=== PATIENT | female | born 1945 | race Caucasian/White ===

== ENCOUNTER 2016-12-19 22:27 | Observation (INO) | payer MEDICARE ==
[~2016-12-19] VITALS: Ht 160 cm; Wt 92.6 kg
[~2016-12-19 22:27] MED LIST: ASPI81TA81 PO; ATEN100T PO; CYCL1TAB29 PO; DEXI60CA PO; MONT10TA4 PO; RANI300T PO; ROSU10 PO; TRAM50TA PO
[2016-12-19 22:35] VITALS: BP 144/86; PULSE 87; RESP 16; TEMP 98.1; O2SAT 96
[2016-12-19] MEDS ORDERED: ASPIRIN 81 MG CHEW TAB PO ONE (22:45)
[2016-12-19] MEDS ORDERED: SODIUM CHLORIDE 0.9% FLUSH 10 ML FLUSH IVF PRN (22:45)
[2016-12-19] MEDS ORDERED: NITROGLYCERIN 0.4 MG SL 25 TABS/BTL SL SCH (22:45)
--- NOTE | 2016-12-19 22:58 | RADRPT ---
EXAM DATE/TIME: 12/19/2016 22:42 [place] COMPARISON: CHEST SINGLE AP, March 22, 2016, 10:51. INDICATIONS : Chest pain. MEDICAL HISTORY : Hypercholesterolemia. Hypertension Gastroesophageal reflux disease. Hyperlipidemia, coronary emma ry disease, asthma and lupus remission SURGICAL HISTORY : Total knee replacement, left. CABG,Hysterectomy. Tonsillectomy. Appendectomy, Adenoidectomy, Bilate ral rotator cuff ENCOUNTER: Initial ACUITY: 1 day PAIN SCORE: 7/10 LOCATION: Bilateral chest FINDINGS: A single view of the chest demonstrates the lungs to be symmetrically aerated without evidence of mas s, infiltrate or effusion. The cardiomediastinal contours are unremarkable. Status post median joseph otomy. There are overlying electrocardiogram leads. CONCLUSION: No acute disease. Panchito Hassan MD on December 19, 2016 at 22:55 Board Certified Radiologist. This report was verified electronically.
[2016-12-19 23:03] LABS: CHLORIDE 107 MEQ/L (98-107); POTASSIUM 3.9 MEQ/L (3.5-5.1); SODIUM (NA) 140 MEQ/L (136-145)
[2016-12-19 23:06] LABS: ANION GAP 5 MEQ/L (5-15); BICARBONATE 27.8 MEQ/L (21.0-32.0); BLOOD UREA NITROGEN 18 MG/DL (7-18)
[2016-12-19 23:09] LABS: ALT (GPT) 21 U/L (10-53); AST (GOT) 20 U/L (15-37); GLOMERULAR FILTRATION RATE 71 ML/MIN (>89)
[2016-12-19 23:11] LABS: TOTAL BILIRUBIN ADULT 0.4 MG/DL (0.2-1.0)
--- NOTE | 2016-12-19 23:11 | PD ---
HPI Chief Complaint: Chest Pain Time Seen by Provider: 22:35 Travel History International Travel<30 days: No Contact w/Intl Traveler<30days: No History of Present Illness HPI This is a 71-year-old female who has a history of a CABG 3 years ago who presents to the emergency Department with onset of left-sided chest pain in the center of her breast described as a squeezing pain, deep in her chest, with no associated shortness of breath, nausea or diaphoresis. She says the pain is moderate severity and has been persistent for an hour and a half. Currently in the emergency department resolved. She says she's been getting this pain intermittently from time to time mostly when she exerts herself this is the first time it's persisted like this. She follows with Dr. Jeffries. She took a nitroglycerin prior to arrival but she says it didn't help her. PFSH Past Medical History Arthritis: Yes Asthma: Yes Autoimmune Disease: Yes (LUPUS REMISSION 1989) Blood Disorders: No Depression: Yes Cancer: No Cardiac Catheterization: Yes Cardiovascular Problems: Yes High Cholesterol: Yes Chest Pain: Yes Coronary Artery Disease: Yes Diabetes: No Endocrine: No Fibromyalgia: Yes GERD: Yes Glaucoma: No Genitourinary: No Headaches: Yes Hepatitis: No Hiatal Hernia: No (ACID REFLUX) Hypertension: Yes Immune Disorder: No Medical other: Yes (FIBROMYALGIA, BACK INJURY,LUPUS IN REMISSION) Musculoskeletal: Yes Neurologic: No Psychiatric: No Reproductive: No Respiratory: Yes (ASTHMA) Immunizations Current: Yes Pneumonia: Yes Thyroid Disease: No Influenza Vaccination: Yes ?: Not Menopausal: Yes : 2 Para: 2 Past Surgical History Abdominal Surgery: Yes (APPENDECTOMY) Appendectomy: Yes Body Medical Devices: NONE Coronary Artery Bypass Graft: Yes (5 VESSEL: 2014) Eye Surgery: Yes (BILATERAL CATARACTS) Gynecologic Surgery: Yes (TOTAL HYSTERECTOMY) Hysterectomy: Yes Joint Replacement: Yes (LEFT KNEE) Oral Surgery: Yes (TONSILS AND ADNOIDS) Tonsillectomy: Yes Other Surgery: Yes Social History Alcohol Use: Yes ("VERY OCCASIONALLY") Tobacco Use: No Substance Use: No Allergies-Medications (Allergen,Severity, Reaction): Coded Allergies: betamethasone (Unverified Allergy, Severe, Rash, 12/19/16) CELESTONE RXN = RASH ciprofloxacin (Unverified Allergy, Severe, 12/19/16) clarithromycin (Unverified Allergy, Severe, 12/19/16) codeine (Unverified Allergy, Severe, 12/19/16) gemfibrozil (Unverified Allergy, Severe, Rash, 12/19/16) iodine (Unverified Allergy, Severe, 12/19/16) nadja (Unverified Allergy, Severe, 12/19/16) penicillin G (Unverified Allergy, Severe, Rash, 12/19/16) potassium iodide (Unverified Allergy, Severe, 12/19/16) povidone-iodine (Unverified Allergy, Severe, 12/19/16) sodium iodide (Unverified Allergy, Severe, 12/19/16) sodium iodide (Unverified Allergy, Severe, 12/19/16) sulfamethoxazole (Unverified Allergy, Severe, 12/19/16) trimethoprim (Unverified Allergy, Severe, 12/19/16) diclofenac (Unverified Adverse Reaction, Severe, UPSETS STOMACH, 12/19/16) etodolac (Unverified Adverse Reaction, Severe, UPSETS STOMACH, 12/19/16) flurbiprofen (Unverified Adverse Reaction, Severe, UPSETS STOMACH, 12/19/16 ) ibuprofen (Unverified Adverse Reaction, Severe, UPSETS STOMACH, 12/19/16) indomethacin (Unverified Adverse Reaction, Severe, UPSETS STOMACH, 12/19/16 ) ketoprofen (Unverified Adverse Reaction, Severe, UPSETS STOMACH, 12/19/16) ketorolac (Unverified Adverse Reaction, Severe, UPSETS STOMACH, 12/19/16) naproxen (Unverified Adverse Reaction, Severe, UPSETS STOMACH, 12/19/16) oxaprozin (Unverified Adverse Reaction, Severe, UPSETS STOMACH, 12/19/16) Uncoded Allergies: LEROY (Allergy, Mild, Rash, 03/14/03) IODINE INJECTION (Allergy, Mild, rash, 01/22/06) mangoes (Allergy, Mild, rash, 01/22/06) Reported Meds & Prescriptions Reported Meds & Active Scripts Active Reported Flexeril (Cyclobenzaprine HCl) 10 Mg Tab 10 Mg PO DIRECTED Tramadol (Tramadol HCl) 50 Mg Tab 1-2 Tab PO DIRECTED PRN Crestor (Rosuvastatin Calcium) 10 Mg Tab 20 Mg PO DAILY Aspir-81 (Aspirin) 81 Mg Tabdr 162 Mg PO DAILY Dexilant (Dexlansoprazole) 60 Mg Cap 60 Mg PO DAILY Montelukast (Montelukast Sodium) 10 Mg Tab 10 Mg PO DAILY Ranitidine (Ranitidine HCl) 300 Mg Tab 300 Mg PO BID Atenolol 100 Mg Tab 100 Mg PO BID Review of Systems Except as stated in HPI: all other systems reviewed are Neg Physical Exam Narrative GENERAL:Well appearing, no acute distress SKIN: Focused skin assessment warm and dry. HEAD: Atraumatic. Normocephalic. EYES: Pupils equal and round. No injection or drainage. ENT: Moist mucous membranes NECK: Trachea midline. CARDIOVASCULAR: Regular rate and rhythm. No murmur appreciated. RESPIRATORY: Clear to auscultation. Breath sounds equal bilaterally. GASTROINTESTINAL: Abdomen soft, non-tender, nondistended. MUSCULOSKELETAL: No obvious deformities. NEUROLOGICAL: Awake and alert. No obvious cranial nerve deficits. Moving all extremities. PSYCHIATRIC: Appropriate mood and affect; insight and judgment normal. Data Data Orders Orders Electrocardiogram (12/19/16 22:35) Complete Blood Count With Diff (12/19/16 22:35) Comprehensive Metabolic Panel (12/19/16 22:35) Troponin I (12/19/16 22:35) Chest, Single Ap (12/19/16 22:35) Ecg Monitoring (12/19/16 22:35) Bilateral Bp Monitoring (12/19/16 22:35) Iv Access Insert/Monitor (12/19/16 22:35) Oximetry (12/19/16 22:35) Oxygen Administration (12/19/16 22:35) Aspirin Chew (Aspirin Chew) (12/19/16 22:45) Sodium Chloride 0.9% Flush (Ns Flush) (12/19/16 22:45) Nitroglycerin Sl (Nitrostat Sl) (12/19/16 22:45) Labs Laboratory Tests Test 12/19/16 22:45 Blood Urea Nitrogen 18 MG/DL Creatinine 0.80 MG/DL Random Glucose 78 MG/DL Albumin 3.7 GM/DL Calcium Level 8.7 MG/DL Aspartate Amino Transf (AST/SGOT) 20 U/L Alanine Aminotransferase (ALT/SGPT) 21 U/L Sodium Level 140 MEQ/L Potassium Level 3.9 MEQ/L Chloride Level 107 MEQ/L Carbon Dioxide Level 27.8 MEQ/L Anion Gap 5 MEQ/L Estimat Glomerular Filtration Rate 71 ML/MIN Tiffany Villegas MD Dec 19, 2016 23:11
[2016-12-19 23:12] LABS: ALKALINE PHOSPHATASE 59 U/L (45-117)
[2016-12-19 23:40] LABS: AUTOMATED NEUTROPHIL # 3.2 TH/MM3 (1.8-7.7); BASOPHIL % 0.6 % (0.0-2.0); EOSINOPHIL # 0.1 TH/MM3 (0-0.4); EOSINOPHIL % 2.1 % (0.0-4.0); HEMO FLAGS DIFF FINAL; LYMPH % 38.3 % (9.0-44.0); LYMPHOCYTE # 2.4 TH/MM3 (1.0-4.8); MEAN CELL VOLUME 90.5 FL (80.0-100.0); MEAN CORPUSCULAR HEMOGLOBIN 30.2 PG (27.0-34.0); MEAN CORPUSCULAR HGB CONC 33.4 % (32.0-36.0); MONO % 8.8 % (0.0-8.0); NEUT % 50.2 % (16.0-70.0); PLATELET COUNT 241 TH/MM3 (150-450); RED BLOOD COUNT 4.42 MIL/MM3 (4.00-5.30); RED CELL DISTRIBUTION WIDTH 13.8 % (11.6-17.2); WHITE BLOOD COUNT 6.3 TH/MM3 (4.0-11.0)
[2016-12-19] MEDS ORDERED: SODIUM CHLORIDE 0.9% FLUSH 10 ML FLUSH IV FLUSH PRN (23:45)
[2016-12-19 23:50] VITALS: BP 119/76; PULSE 75; RESP 16; O2SAT 96
[2016-12-20 01:00] VITALS: PULSE 78
[2016-12-20 01:11] VITALS: BP 148/88; PULSE 79; RESP 18; TEMP 98.8; O2SAT 97
[2016-12-20 01:39] VITALS: O2SAT 97
[2016-12-20 04:16] VITALS: BP 121/86; PULSE 81; RESP 16; TEMP 96.7; O2SAT 97
[2016-12-20 08:00] VITALS: BP 136/92; PULSE 78; RESP 18; TEMP 96.2; O2SAT 95
--- NOTE | 2016-12-20 08:04 | HHI.DCPOC ---
Discharge Care Plan Diagnosis: (1) Chest pain Goals to Promote Your Health * To prevent worsening of your condition and complications * To maintain your health at the optimal level Directions to Meet Your Goals Take your medications as prescribed Follow your dietary instruction Follow activity as directed Keep your appointments as scheduled Take your immunizations and boosters as scheduled If your symptoms worsen call your PCP, if no PCP go to Urgent Care Center or Emergency Room Smoking is Dangerous to Your Health. Avoid second hand smoke Call the 24-hour hour crisis hotline for domestic abuse at Louise Albrecht MD Dec 20, 2016 08:04
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
[2016-12-20] MEDS ORDERED: SODIUM CHLORIDE 0.9% FLUSH 10 ML FLUSH IV FLUSH SCH (09:00)
--- NOTE | 2016-12-20 13:36 | EKG ---
Date Performed: 12/20/2016 Time Performed: 04:53:11 PTAGE: 71 years EKG: Sinus rhythm POSSIBLE LEFT ATRIAL ENLARGEMENT BORDERLINE ECG PREVIOUS TRACING : 12/20/2016 01.33 Since previous tracing, no significant change. DOCTOR: Jorge Trammell Interpretating Date/Time 12/20/2016 13:35:57
--- NOTE | 2016-12-20 13:36 | EKG ---
Date Performed: 12/20/2016 Time Performed: 01:33:11 PTAGE: 71 years EKG: Sinus rhythm POSSIBLE LEFT ATRIAL ENLARGEMENT BORDERLINE ECG PREVIOUS TRACING : 03/22/2016 15.49 Since previous tracing, no significant change. DOCTOR: Jorge Trammell Interpretating Date/Time 12/20/2016 13:35:18
--- NOTE | 2016-12-20 13:36 | EKG ---
Date Performed: 12/19/2016 Time Performed: 22:35:51 PTAGE: 71 years EKG: Sinus rhythm POSSIBLE LEFT ATRIAL ENLARGEMENT BORDERLINE ECG PREVIOUS TRACING 03/22/16 Since previous tracing, the lateral ST-T wave changes have improved. DOCTOR: Jorge Trammell Interpretating Date/Time 12/20/2016 13:34:40
[2016-12-21] MEDS ORDERED: INFLUENZA VIRUS VACCINE (QUADRIVALENT) 0.5 ML SYR IM ONE (10:00)
== END 2016-12-20 09:50 | disposition home or self-care (01) ==
LOC: PHED 22:27 → PHEDA 23:48 → PH3A 12-20 00:53
PROVIDERS: ADMIT Hospitalist; ATTEND Hospitalist
DX: R07.89 Other chest pain (principal); N64.4 Mastodynia; I10 Essential (primary) hypertension; I25.10 Atherosclerotic heart disease of native coronary artery without angina pectoris; F41.9 Anxiety disorder, unspecified; G47.00 Insomnia, unspecified; E78.00 Pure hypercholesterolemia, unspecified; J45.909 Unspecified asthma, uncomplicated; K21.9 Gastro-esophageal reflux disease without esophagitis; M79.7 Fibromyalgia; Z95.1 Presence of aortocoronary bypass graft; Z96.652 Presence of left artificial knee joint
CPT/HCPCS: 71010; 80053; 84484; 85025; 93005; 99285; G0378